=== PATIENT | female | born 1970 | race Caucasian/White ===

== ENCOUNTER 2017-12-19 17:14 | Emergency (ER) | payer OTHER ==
[~2017-12-19] VITALS: Ht 167.6 cm; Wt 145.1 kg
[~2017-12-19 17:14] MED LIST: IBUP-1801 PO
[2017-12-19 17:17] VITALS: BP 156/96
[2017-12-19] MEDS ORDERED: ASPIRIN 325 MG TAB PO ONE (17:35)
--- NOTE | 2017-12-19 17:38 | NUR ---
XRAY AT BEDSIDE
--- NOTE | 2017-12-19 17:40 | NUR ---
INTERMITTENT CHEST PAIN X 4 DAYS RADIATING TO NECK AREA. NUMBNESS /TINGLING TO LEFT SIDE OF ARM. DENIES SOB. PT FLUSHED, REPORTS NIGHT SWEATS. WENT TO PCP TODAY AND INFORMED TO COME TO ER. DENIES N/V/D; SKIN IS PINK/WARM/DRY; AAOX4, PT DENIES ANY FEVER, SOB, OR COUGH AT THIS TIME; PATIENT STATES PAIN OF 7/10 AT THIS TIME;PT C/O NUMBNESS TO LEFT EXTREMITIES. LEFT LOWER EXTREMITIES NON PITTING EDEMA NOTED.PATIENT POSITIONED FOR COMFORT; HOB ELEVATED; BEDRAILS UP X2; BED DOWN. ER MD MADE AWARE OF PT STATUS.
[2017-12-19 18:10] LABS: BASOPHILS # (AUTO) 0.3 K/uL (0.00-0.22); EOSINOPHILS # (AUTO) 0.1 K/uL (0-0.4); HEMATOCRIT 39.5 % (36-48); LYMPHOCYTES # (AUTO) 2.7 K/uL (2.5-16.5); MEAN CORPUSCULAR HEMOGLOBIN 28 pg (27-31); MEAN CORPUSCULAR HGB CONC 33 g/dL (33-37); MEAN CORPUSCULAR VOLUME 85 fL (80-94); MONOCYTES # (AUTO) 0.7 K/uL (0.8-1.0); NEUTROPHILS # (AUTO) 6.6 K/uL (1.8-7.7); PLATELET COUNT (AUTO) 274 K/uL (140-450); RED BLOOD CELL COUNT(AUTO) 4.64 MIL/uL (4.20-5.40); RED CELL DISTRIBUTION WIDTH 13.1 % (11.6-13.7); WHITE BLOOD COUNT (AUTO) 10.4 K/uL (4.8-10.8)
[2017-12-19 18:21] LABS: ANION GAP 12.7 (8-16); CARBON DIOXIDE 27.6 mmol/L (21-32); CREATININE 0.9 mg/dL (0.6-1.3); POTASSIUM 3.3 mmol/L (3.5-5.1)
[2017-12-19] MEDS ORDERED: POTASSIUM CHLORIDE 10 MEQ TABER PO ONE (18:25)
--- NOTE | 2017-12-19 18:25 | NUR ---
PT STATED PAIN TO NECK COMES AND GOES ,BUT IT RELIEVED.
[2017-12-19 18:27] LABS: TOTAL BILIRUBIN 0.2 mg/dL (0.0-1.0)
--- NOTE | 2017-12-19 19:25 | NUR ---
PT RESTING IN BED, VSS, STATES HER PAIN STILL THERE LOWER 2/10. WILL CONT TO MONITOR. ER MADE AWARE.
--- NOTE | 2017-12-19 19:32 | NUR ---
Victorino dumont in [facility] - 12/19/17 at 1933 by ROSA Recieved report from Latonia CUEVAS
[2017-12-19 19:51] LABS: APPEARANCE,URINE CLEAR (CLEAR); BILIRUBIN,URINE NEGATIVE (NEGATIVE); BLOOD, URINE NEGATIVE (NEGATIVE); COLOR,URINE YELLOW (YELLOW); LEUKOCYTE ESTERASE ,URINE NEGATIVE (NEGATIVE); NITRITE, URINE NEGATIVE (NEGATIVE); UGLUCOSE NEGATIVE (NEGATIVE)
--- NOTE | 2017-12-19 21:13 | NUR ---
Report given and Care taken over by Rashawn CUEVAS ICU2
--- NOTE | 2017-12-19 23:25 | NUR ---
TAKEN FOR CT
[2017-12-20] MEDS ORDERED: KETOROLAC 30 MG/ML VIAL IVP ONE (00:10)
[2017-12-20 00:58] VITALS: BP 141/77
== END 2017-12-20 00:57 | disposition home or self-care (01) ==
LOC: MED 17:14
DX: R07.89 Other chest pain (principal); R51 Headache; I10 Essential (primary) hypertension; Z88.0 Allergy status to penicillin
CPT/HCPCS: 36415; 71045; 71275; 80053; 81003; 83880; 84484; 84703; 85025; 85379; 96374; 99285; J1885; Q0092; Q9967

== ENCOUNTER 2021-11-13 13:33 | Emergency (ER) | payer OTHER ==
[~2021-11-13] VITALS: Ht 167.6 cm; Wt 133.8 kg
[2021-11-13 13:44] VITALS: BP 140/87
--- NOTE | 2021-11-13 13:56 | NUR ---
PT AMBULATED TO ER BED 4 WITH A STEADY GAIT.
--- NOTE | 2021-11-13 14:12 | NUR ---
51 Y/O FEMALE HERE FOR LEFT BIG TOE WOUND CHECK . PT STATES A BIG CAN FELL ON LEFT BIG TOE X 1 MONTH AGO & SEEN AT URGENT CARE, PRESCRIBED KEFLEX. DENIES FEVER/CHILLS. DENIES N/V. PMH: HYPOTHYROID, HTN, CHRONIC BACK PROBLEM ALLERGIES: PCN
[2021-11-13] MEDS ORDERED: LIDOCAINE MPF 1% 10 MG/ML VIAL INJ ONE ×2 (14:35)
[2021-11-13] MEDS ORDERED: IBUPROFEN 600 MG TAB PO ONE (14:35)
--- NOTE | 2021-11-13 14:46 | NUR ---
ADELINA LACY AT PT BEDSIDE FOR PROCEDURE.
[2021-11-13] MEDS ORDERED: SULF-58 PO (15:24)
[2021-11-13 15:29] VITALS: BP 139/77
--- NOTE | 2021-11-13 15:29 | NUR ---
Patient discharged with v/s stable. Written and verbal after care instructions given and explained. Patient alert, oriented and verbalized understanding of instructions. Ambulatory with steady gait. All questions addressed prior to discharge. ID band removed. Patient advised to follow up with PMD. Rx of BACTRIM 400-80MG given. Patient educated on indication of medication including possible reaction and side effects. Opportunity to ask questions provided and answered.
== END 2021-11-13 15:29 | disposition home or self-care (01) ==
LOC: MED 13:33
DX: S91.202A Unspecified open wound of left great toe with damage to nail, initial encounter (principal); I10 Essential (primary) hypertension; E03.9 Hypothyroidism, unspecified; Z79.2 Long term (current) use of antibiotics; Z79.1 Long term (current) use of non-steroidal anti-inflammatories (NSAID); Z88.0 Allergy status to penicillin; W20.8XXA Other cause of strike by thrown, projected or falling object, initial encounter; Y93.89 Activity, other specified; Y92.89 Other specified places as the place of occurrence of the external cause; Y99.8 Other external cause status
CPT/HCPCS: 11730; 99284; J2001